=== PATIENT | male | born 1970 | race Two or more races ===

== ENCOUNTER 2020-11-12 13:05 | Emergency (ER) | payer OTHER ==
[~2020-11-12] VITALS: Ht 160 cm; Wt 88.9 kg
[2020-11-12] MEDS ORDERED: KETO10TA2 PO (16:17)
[2020-11-12] MEDS ORDERED: NORFLEX100MG PO (16:17)
== END 2020-11-12 17:27 | disposition home or self-care (01) ==
LOC: ER 13:05
DX: S86.912A Strain of unspecified muscle(s) and tendon(s) at lower leg level, left leg, initial encounter (principal); X50.0XXA Overexertion from strenuous movement or load, initial encounter; Y93.79 Activity, other specified sports and athletics; Y92.9 Unspecified place or not applicable

== ENCOUNTER 2020-11-16 08:00 | Outpatient (CLI) | payer OTHER ==
[~2020-11-16 08:00] MED LIST: KETO10TA2 PO; NORFLEX100MG PO
== END 2020-11-16 08:05 | disposition home or self-care (01) ==
LOC: SONOGRAMA 08:00
PROVIDERS: ATTEND General Practice
DX: S89.92XA Unspecified injury of left lower leg, initial encounter (principal)

== ENCOUNTER 2021-11-08 12:05 | Emergency (ER) | payer OTHER ==
[~2021-11-08] VITALS: Ht 160 cm; Wt 90.7 kg
[2021-11-08] MEDS ORDERED: DICLOFENAC SODI75 MG PO (18:32)
[2021-11-08] MEDS ORDERED: NORFLEX100MG PO (18:32)
== END 2021-11-08 18:38 | disposition home or self-care (01) ==
LOC: ER 12:05
DX: S89.91XA Unspecified injury of right lower leg, initial encounter (principal); W19.XXXA Unspecified fall, initial encounter; Y93.9 Activity, unspecified; Y92.9 Unspecified place or not applicable; Y99.9 Unspecified external cause status